=== PATIENT | female | born 1960 | race Caucasian/White ===

== ENCOUNTER → 2021-01-15 | Outpatient (CLI) | payer BC ==
[~2021-01-15] MED LIST: AMBIEN CR6.25 MG PO; BUPROPION XL150 MG PO; CARVEDILOL6.25 MG PO; CELEXA 20MG TAB20 MG PO; DULERA 100 MCG8.8 GM INH; FISH OIL500 MG PO; FLEXERIL 10 MG10 MG PO; FLONASE ALLER15.8 ML; FUROSEMIDE20 MG PO; HAIR SKIN NAIL1 EACH PO; LIPITOR TAB 2020 MG PO; LIPITOR10 MG PO; MELOXICAM15 MG PO; MIRAPEX1 MG PO; MULTI COMPLETE1 EACH PO; NASONEX SPRAY 117 GM; NUVIGIL150 MG PO; OSTERA TABLET1 EACH PO; PERCOCET 5-3251 EACH PO; PERCOCET 7.5-31 EACH PO; PRAMIPEXOLE DIHY1 MG PO; PROAIR HFA8.5 GM INH; PROTONIX 40 MG40 M1 PO; PROVENTIL HFA 61 INH INH; REXULTI2 MG PO; TEMAZEPAM30 MG PO; TRAMADOL HCL50 MG PO; VISTARIL25 MG PO; WELLBUTRIN XL300 M1 PO; XARELTO10 MG PO
[2021-01-15 14:28] LABS: RED BLOOD COUNT 3.85 M/UL (4.00-5.10); WHITE BLOOD COUNT 6.8 K/UL (4.5-11.0)
[2021-01-15 14:39] LABS: HEMOGLOBIN 6.8 gm/dl (12.3-15.3)
== END ==
LOC: LAB 13:26
PROVIDERS: Internal Medicine
DX: D62 Acute posthemorrhagic anemia (principal)
CPT/HCPCS: 36415; 85027; 86850; 86870; 86900; 86901; 86902; 86920; 86922; J7050; P9016

== ENCOUNTER → 2021-01-16 | Outpatient (CLI) | payer BC ==
[2021-01-16 12:33] LABS: WHITE BLOOD COUNT 6.5 K/UL (4.5-11.0)
[2021-01-16 12:47] LABS: HEMOGLOBIN 8.9 gm/dl (12.3-15.3); RED BLOOD COUNT 4.36 M/UL (4.00-5.10)
== END ==
LOC: OPSV 07:24
PROVIDERS: Internal Medicine
DX: D62 Acute posthemorrhagic anemia (principal)
CPT/HCPCS: 36415; 36430; 85027; J7050; P9016

== ENCOUNTER → 2021-01-22 | Day surgery (SDC) | payer BC | END | disposition home or self-care (01) | LOC: OR 07:00 | PROVIDERS: Internal Medicine Gastroenterology | PROC: 0DJD8ZZ Inspection of Lower Intestinal Tract, Via Natural or Artificial Opening Endoscopic (ICD-10-PCS; 2021-01-22) | PROC: 0DB98ZX Excision of Duodenum, Via Natural or Artificial Opening Endoscopic, Diagnostic (ICD-10-PCS; principal; 2021-01-22 10:30) | PROC: 0DB38ZX Excision of Lower Esophagus, Via Natural or Artificial Opening Endoscopic, Diagnostic (ICD-10-PCS; 2021-01-22 10:30) | DX: K21.00 Gastro-esophageal reflux disease with esophagitis, without bleeding (principal); K22.10 Ulcer of esophagus without bleeding; K44.9 Diaphragmatic hernia without obstruction or gangrene; K64.1 Second degree hemorrhoids; K57.30 Diverticulosis of large intestine without perforation or abscess without bleeding; K66.0 Peritoneal adhesions (postprocedural) (postinfection); D50.0 Iron deficiency anemia secondary to blood loss (chronic); I10 Essential (primary) hypertension; E78.5 Hyperlipidemia, unspecified; G89.29 Other chronic pain; M19.90 Unspecified osteoarthritis, unspecified site; M81.0 Age-related osteoporosis without current pathological fracture; E11.9 Type 2 diabetes mellitus without complications; G25.81 Restless legs syndrome; E66.9 Obesity, unspecified; Z68.36 Body mass index [BMI] 36.0-36.9, adult; Z79.899 Other long term (current) drug therapy; Z20.822 Contact with and (suspected) exposure to COVID-19; Z88.8 Allergy status to other drugs, medicaments and biological substances; Z91.013 Allergy to seafood | CPT/HCPCS: J2001; J2704 ==

== ENCOUNTER → 2021-04-23 | Outpatient (CLI) | payer BC ==
[~2021-04-23] VITALS: Ht 160 cm; Wt 93.4 kg
== END ==
LOC: OPSV 09:44
DX: D62 Acute posthemorrhagic anemia (principal); D50.9 Iron deficiency anemia, unspecified
CPT/HCPCS: 96365; J1756

== ENCOUNTER → 2021-04-29 | Outpatient (CLI) | payer BC | LOC: OPSV 14:00 | DX: D62 Acute posthemorrhagic anemia (principal); D50.9 Iron deficiency anemia, unspecified | CPT/HCPCS: 96365; J1756 ==

== ENCOUNTER → 2021-05-06 | Outpatient (CLI) | payer BC ==
[~2021-05-06] VITALS: Ht 160 cm; Wt 93.4 kg
== END ==
LOC: OPSV 14:00
DX: D62 Acute posthemorrhagic anemia (principal); D50.9 Iron deficiency anemia, unspecified
CPT/HCPCS: 96365; J1756

== ENCOUNTER → 2021-05-13 | Outpatient (CLI) | payer BC ==
[~2021-05-13] VITALS: Ht 160 cm; Wt 93.4 kg
== END ==
LOC: OPSV 13:47
DX: D62 Acute posthemorrhagic anemia (principal); D64.9 Anemia, unspecified; D50.9 Iron deficiency anemia, unspecified
CPT/HCPCS: 96365; J1756

== ENCOUNTER → 2021-05-29 | Day surgery (SDC) | payer BC ==
[~2021-05-29] MED LIST changes: +PROTONIX40 MG PO
== END | disposition home or self-care (01) ==
LOC: OR 09:00
DX: K20.0 Eosinophilic esophagitis (principal); K25.9 Gastric ulcer, unspecified as acute or chronic, without hemorrhage or perforation; D50.0 Iron deficiency anemia secondary to blood loss (chronic); K44.9 Diaphragmatic hernia without obstruction or gangrene; J45.909 Unspecified asthma, uncomplicated; G47.30 Sleep apnea, unspecified; E66.01 Morbid (severe) obesity due to excess calories; M19.90 Unspecified osteoarthritis, unspecified site; G89.4 Chronic pain syndrome; G25.81 Restless legs syndrome; F32.A Depression, unspecified; F41.9 Anxiety disorder, unspecified; Z68.38 Body mass index [BMI] 38.0-38.9, adult; Z88.8 Allergy status to other drugs, medicaments and biological substances; Z79.1 Long term (current) use of non-steroidal anti-inflammatories (NSAID); Z79.899 Other long term (current) drug therapy; Z90.710 Acquired absence of both cervix and uterus
CPT/HCPCS: J2001; J2704; J7040

== ENCOUNTER → 2021-06-10 | Outpatient (CLI) | payer BC ==
[~2021-06-10] VITALS: Ht 160 cm; Wt 93.4 kg
== END ==
LOC: OPSV 14:00
DX: D62 Acute posthemorrhagic anemia (principal); D50.9 Iron deficiency anemia, unspecified
CPT/HCPCS: 96365; J1756

== ENCOUNTER 2021-07-02 16:14 | Emergency (ER) | payer BC ==
[~2021-07-02] VITALS: Ht 160 cm; Wt 95.3 kg
== END 2021-07-02 19:51 | disposition home or self-care (01) ==
LOC: ER1 16:14
DX: U07.1 COVID-19 (principal); Z23 Encounter for immunization; Z90.710 Acquired absence of both cervix and uterus
CPT/HCPCS: 99283; M0243

== ENCOUNTER → 2021-07-10 | Outpatient (CLI) | payer BC ==
[~2021-07-10] VITALS: Ht 160 cm; Wt 93.4 kg
== END ==
LOC: OPSV 14:00
DX: D62 Acute posthemorrhagic anemia (principal); D50.9 Iron deficiency anemia, unspecified
CPT/HCPCS: 96365; J1756

== ENCOUNTER → 2021-07-29 | Outpatient (CLI) | payer BC | LOC: SLEEP-COR 15:45 | DX: G47.33 Obstructive sleep apnea (adult) (pediatric) (principal); J30.9 Allergic rhinitis, unspecified; R73.09 Other abnormal glucose; D62 Acute posthemorrhagic anemia; R93.6 Abnormal findings on diagnostic imaging of limbs | CPT/HCPCS: 95810 ==

== ENCOUNTER → 2021-09-12 | Outpatient (CLI) | payer BC ==
[~2021-09-12] VITALS: Ht 160 cm; Wt 93.4 kg
== END ==
LOC: OPSV 13:00
DX: D50.9 Iron deficiency anemia, unspecified (principal)
CPT/HCPCS: 96365; J1756

== ENCOUNTER → 2021-10-10 | Outpatient (CLI) | payer BC ==
[~2021-10-10] VITALS: Ht 160 cm; Wt 93.4 kg
== END ==
LOC: OPSV 14:00
DX: D50.9 Iron deficiency anemia, unspecified (principal)
CPT/HCPCS: 96365; J1756

== ENCOUNTER → 2022-01-10 | Outpatient (CLI) | payer BC ==
[~2022-01-10] MED LIST changes: +CARAFATE 1 GM TA1 GM PO; +RESTORIL 30 MG30 MG PO
== END ==
LOC: LAB 12:10
DX: Z20.822 Contact with and (suspected) exposure to COVID-19 (principal)
CPT/HCPCS: U0003

== ENCOUNTER → 2022-01-14 | Day surgery (SDC) | payer BC | END | disposition home or self-care (01) | LOC: OR 08:26 | DX: K21.00 Gastro-esophageal reflux disease with esophagitis, without bleeding (principal); K44.9 Diaphragmatic hernia without obstruction or gangrene; K25.3 Acute gastric ulcer without hemorrhage or perforation; I10 Essential (primary) hypertension; E78.5 Hyperlipidemia, unspecified; G47.33 Obstructive sleep apnea (adult) (pediatric); E66.01 Morbid (severe) obesity due to excess calories; D50.0 Iron deficiency anemia secondary to blood loss (chronic); Z88.8 Allergy status to other drugs, medicaments and biological substances; Z91.013 Allergy to seafood; Z68.37 Body mass index [BMI] 37.0-37.9, adult | CPT/HCPCS: J2704; J7030 ==

== ENCOUNTER → 2022-04-21 | Outpatient (CLI) | payer BC | LOC: OPSV 10:00 | DX: D62 Acute posthemorrhagic anemia (principal) | CPT/HCPCS: 96365; J1756 ==

== ENCOUNTER → 2022-04-28 | Outpatient (CLI) | payer BC ==
[~2022-04-28] VITALS: Ht 160 cm; Wt 93.4 kg
== END ==
LOC: OPSV 09:55
DX: D50.9 Iron deficiency anemia, unspecified (principal)
CPT/HCPCS: 96365; J1756

== ENCOUNTER → 2022-05-01 | Outpatient (CLI) | payer BC | LOC: KOH-I 10:30 | DX: G20 Parkinson's disease (principal) | CPT/HCPCS: 70551 ==

== ENCOUNTER → 2022-05-06 | Outpatient (CLI) | payer BC ==
[~2022-05-06] VITALS: Ht 160 cm; Wt 93.4 kg
== END ==
LOC: OPSV 05-05 10:00
DX: D50.9 Iron deficiency anemia, unspecified (principal)
CPT/HCPCS: 96365; J1756